=== PATIENT | male | born 1990 | race Caucasian/White ===

== ENCOUNTER 2025-03-22 09:36 | Day surgery (SDC) | payer OTHER ==
[~2025-03-22] VITALS: Ht 198.1 cm; Wt 129.7 kg
[~2025-03-22 09:36] MED LIST: HYDACE5 PO
[2025-03-22] MEDS ORDERED: CeFAZolin Sodium 3,000 MG VIAL ONE (10:25)
[2025-03-22] MEDS ORDERED: CeFAZolin Sodium 2,000 MG VIAL ONE (10:27)
[2025-03-22] MEDS ORDERED: FentaNYL Citrate 50 MCG/ML 2 ML Injection ONE ×3 (10:27→12:56)
[2025-03-22] MEDS ORDERED: Ondansetron HCl 2 MG / ML 2ML Vial ONE (10:28)
[2025-03-22] MEDS ORDERED: Dexamethasone Sod Phos 10 MG/ML 1ML VIAL ONE (10:28)
[2025-03-22] MEDS ORDERED: CeFAZolin Sodium 1000 mg Vial ONE (10:35)
[2025-03-22] MEDS ORDERED: Adderall 20 MG20 MG (10:45)
[2025-03-22] MEDS ORDERED: AMPDEX5 (10:45)
[2025-03-22] MEDS ORDERED: OLME20 PO (10:45)
--- NOTE | 2025-03-22 10:51 | NUR ---
03/22/25 [address] HANSON NO NEED TO JUAN P[facility] [employer]AT[employer] [facility] WITH CHG WIPES.
[2025-03-22] MEDS ORDERED: Midazolam HCl 1MG / ML 2ML Vial ONE (10:56)
[2025-03-22] MEDS ORDERED: Bupivacaine 0.5% Inj 50 ML Vial (NON CHARGE) INJ ONE (11:29)
[2025-03-22] MEDS ORDERED: HYDROcodone 5-APAP 325 TAB ONE (12:53)
--- NOTE | 2025-03-22 13:17 | NUR ---
03/22/25 1317 Apple Oglesby 1300 BROTHER, MALIHA, AT BEDSIDE. PT C/O PAIN ABOUT THE SAME 5/10 AFTER MOVING TO RECLINER. GIVEN MORE FENTANYL, 25MCG IV PUSH.
== END 2025-03-22 14:05 | disposition home or self-care (01) ==
LOC: ORSCSDS 09:36
PROVIDERS: Urology
PROC: 0VT90ZZ Resection of Right Testis, Open Approach (ICD-10-PCS; principal; 2025-03-22 11:30)
DX: C62.91 Malignant neoplasm of right testis, unspecified whether descended or undescended (principal); I10 Essential (primary) hypertension; F90.9 Attention-deficit hyperactivity disorder, unspecified type; Z79.899 Other long term (current) drug therapy
CPT/HCPCS: 88309; A9270; J0690; J1100; J2250; J2405; J2704; J3010; J7120